=== PATIENT | male | born 1945 | race Caucasian/White ===

== ENCOUNTER 2019-11-30 08:44 | Emergency (ER) | payer MEDICARE, BC, SELFPAY ==
[2019-11-30 08:58] VITALS: BP 136/74; PULSE 63; RESP 18; TEMP 36.8; O2SAT 97
--- NOTE | 2019-11-30 09:16 | ED.EYEPROB ---
HPI - Eye Problem General Chief complaint: Eye Problems Stated complaint: right eye Time Seen by Provider: 11/30/19 09:05 Source: patient and RN notes reviewed Mode of arrival: ambulatory Limitations: no limitations History of Present Illness HPI Narrative: Patient presents today complaining of a possible scratch to his right cornea. He was working on his boat yesterday with a paperboard box maker in his right hand. He believes that somehow the corner of this paperboard box maker poked him in the eye. Reports blurry vision, photophobia, watery eyes. Denies drainage. Currently rates his pain 5/10. He has been using Visine without relief. Related Data Home Medications Medication Instructions Recorded Confirmed levothyroxine 75 mcg PO DAILY 11/30/19 11/30/19 rosuvastatin 10 mg PO DAILY 11/30/19 11/30/19 Allergies Allergy/AdvReac Type Severity Reaction Status Date / Time No Known Allergies Allergy Verified 11/30/19 09:13 Review of Systems Review of Systems: Narrative: CONSTITUTIONAL: Denies body aches, fever, chills, or sweats. EYES: +Blurry vision, red eye pain, photophobia ENT: Denies rhinorrhea, congestion, sore throat, or otalgia. CARDIOVASCULAR: Denies chest pain, palpitations, or edema. RESPIRATORY: Denies cough or dyspnea. GASTROINTESTINAL: Denies abdominal pain, nausea, vomiting, or diarrhea. GENITOURINARY: Denies dysuria or hematuria. SKIN: Denies rash, itching, or wounds. MUSCULOSKELETAL: Denies back pain, joint pain, or myalgia. NEUROLOGIC: Denies headache, numbness, tingling, or weakness. PSYCH: Denies depression or anxiety. [facility] Past Medical History Medical History (Updated 11/30/19 @ 09:31 by Leana Pineda, TAXI TRUCK DRIVER, ) Hypercholesterolemia Hypothyroidism Comments At time of signature, I have reviewed and agree with nursing past medical, surgical, social and family history unless otherwise noted. Please see nursing chart for further information. There is no relevant family history pertinent to the presenting complaint Exam Narrative: Exam Narrative: GENERAL: Well-appearing, well-nourished, and in no acute distress. HEAD: Normocephalic, atraumatic. EYES: EOMI. PERRL. Conjunctivae normal. Mild redness to right eye. Obvious corneal abrasion with fluorescein uptake to the 10 o'clock position of the right iris.Lids and lashes normal bilaterally ENT: Mucous membranes pink and moist. NECK: Normal AROM. CHEST: No respiratory distress. EXTREMITIES: Normal range of motion. No edema. SKIN: Warm, dry, no rash. Capillary refill normal. Normal skin turgor. NEURO: No focal deficits. Alert and oriented x3. Gait steady. PSYCH: Normal affect. No signs of depression or anxiety. Course Vital Signs Vital signs: Vital Signs Temperature 98.2 F 11/30/19 08:58 Pulse Rate 63 11/30/19 08:58 Respiratory Rate 18 11/30/19 08:58 Blood Pressure 136/74 11/30/19 08:58 Pulse Oximetry 97 11/30/19 08:58 Temperature 98.2 F 11/30/19 08:58 Pulse Rate 63 11/30/19 08:58 Respiratory Rate 18 11/30/19 08:58 Blood Pressure 136/74 11/30/19 08:58 Pulse Oximetry 97 11/30/19 08:58 Reviewed. Pt has been instructed to follow up with his PCP regarding his elevated blood pressure today. Procedures Other Procedure Procedure 1: Other Procedure: Right eye was anesthetized with 1 drop of tetracaine and anesthesia was achieved. The eye was flushed with eye wash. Lid was inverted and examined. Moistened Qtip was used to sweep underneath the upper eyelid with 0 foreign bodies resulting. Cornea was dyed with fluorescein and 1 abrasions or ulcerations were noted. Pt tolerated procedure well. MDM - Eye Problem Differential Diagnosis Differential diagnosis: Likely corneal abrasion, conjunctivitis and subconjunctival hemorrhage Critical Care Time Critical Care Time Critical Care Time: No Discharge Plan Discharge Clinical Impression: Corneal abrasion Qualifiers: Encounter type: initial encounter
== END 2019-11-30 09:25 | disposition home or self-care (01) ==
PROVIDERS: Emergency Provider Nurse Practitioner; PCP Internal Medicine
DX: S05.01XA Injury of conjunctiva and corneal abrasion without foreign body, right eye, initial encounter (principal); W22.8XXA Striking against or struck by other objects, initial encounter; E78.00 Pure hypercholesterolemia, unspecified; E03.9 Hypothyroidism, unspecified
CPT/HCPCS: 99203; A9270; G0463

== ENCOUNTER 2025-05-02 15:31 | Emergency (ER) | payer MEDICARE, BC, SELFPAY ==
--- NOTE | ~2025-05-02 | XR_ITS ---
XR chest 2V 05/02/2025 16:25 Indication: Prior open heart surgery. Status post thoracentesis. Procedure: 2 view chest Comparison: No prior studies for comparison. Findings: Status post median sternotomy for CABG. There is an atrial closure device. Cardiomegaly. Small pleural effusions. Bibasilar airspace disease. Impression: 1: Bibasilar airspace disease may represent atelectasis and/or pneumonia. 2: Small pleural effusions. Reviewed, dictated and finalized at location O. RISK MANAGEMENT CONSULTANT Impression: 1: Bibasilar airspace disease may represent atelectasis and/or pneumonia. 2: Small pleural effusions.
--- OUTSIDE RECORDS SUMMARY | 2025-05-02 15:37 | XMS_ITS | Encounter Summary ---
Author Organization [facility] Address [address] [place] [address] Phone Care Team Providers Care Crt Name Role Phone Josh Baker MD Primary Care Provider [phone] Janet Betancourt RN Unavailable [phone] Viji Salazar RN Unavailable Subhash Mcgill MD Primary Care Provider [phone] Demetris Cole MD Primary Care Provider [phone] Kristyn Chavez RN Unavailable [phone] Luis Antonio Taylor MD Unavailable [phone] Salo Junior MD Unavailable [phone] Miscellaneous, Not In File Unavailable Unava ilable Encounter Details Date Type Department Care Team (Late st Contact Info) Description 07/17/2017 Orders Only [facility] Provider, MD [facility] [place] [address] Social History Tobacco Use Types Packs/Day Years Used Date Smoking Tobacco: Never Alcohol Use Standard Drinks/Week Comments Yes 0 (1 standard drink = 0.6 oz pur e alcohol) Sex and Gender Information Value Date Recorded Sex Assigned at Not on file Legal Sex Male 9:23 AM ROLL RECLAIMER Gender Identity Not on file Sexual Orientation Not on file documented as of this encounter Plan of Treatment Not on file documented as of this encounter Procedures Procedure Name Priority Date/Time Associated Diagnosis Comments DISCHARGE LABORATORY CUMULATIVE REPORT 07/17/2017 12:00 AM ROLL RECLAIMER documented in this encounter Results * DISCHARGE LABORATORY CUMULATIVE REPORT (07/17/2017 12:00 AM ROLL RECLAIMER) Narrative 07/17/2017 12:00 AM ROLL RECLAIMER Ordered by an unspecified provider. us Historical Provider LAB BLOOD ORDERABLES Tamiko l Result documented in this encounter Visit Diagnoses Not on filedocumented in this encounter Additional Health Concerns Infection Onset Date Last Indicated Resolved Time COVID: Suspected 06/28/2024 06/28/2024 06/28/2024 4:42 PM ROLL RECLAIMER COVID: Suspected 03/31/2025 03/31/2025 03/31/2025 1:39 AM ROLL RECLAIMER documented as of this encounter Care Teams Crt Relationship Specialty Start Date End Date Josh Baker MD PCP - General 08/07/16 09/15/23 Subhash Mcgill MD [address] [place] [address] [address] [place] [address] PCP - General Family Medicine 09/16/23 05/15/24 Demetris Cole MD [address] [place] [address] PCP - General Family Medicine 05/16/24 Janet Betancourt RN [address] [place] [address] [place] [address] Terrazzo Layer Helper 05/19/23 05/26/23 Viji Salazar RN [address] [place] [address] [address] [place] [address] Terrazzo Layer Helper 05/27/23 06/16/23 Kristyn Chavez RN [address] [place] [address] [address] [place] [address] Terrazzo Layer Helper 01/15/25 04/30/25 [place] [address] [facility] [address] [facility] [address] [place] [address] Surgeon Cardiothoracic Surgery 01/23/25 Salo Junior MD 2 [facility] [address] [place] [address] Consulting Physician Cardiology 01/23/25 Miscellaneous, Not In File 01/23/25 documented as of this encounter
--- OUTSIDE RECORDS SUMMARY | 2025-05-02 15:37 | XMS_ITS | Encounter Summary ---
Author Organization [facility] Address [address] [place] [address] Care Team Providers Care Panel Maker Name Role Phone Demetris Cole MD Primary Care Provider [phone] Kristyn Chavez RN Unavailable [phone] Luis Antonio Taylor MD Unavailable [phone] Salo Junior MD Unavailable [phone] Miscellaneous, Not In File Unavailable Unava ilable Encounter Details Date Type Department Care Team (Late st Contact Info) Description 04/12/2025 Results Follow-Up [facility] of [address] [address] Blank Lerma NP [address] [facility] [place] [address] XR Chest PA Lateral 2 Views Social History Tobacco Use Types Packs/Day Years Used Date Smoking Tobacco: Never Smokeless Tobacco: Never Alcohol Use Standard Drinks/Week Comments Not Currently 0 (1 standard drink = 0.6 oz pur e alcohol) Social Connection and Isolation Panel Answer Date Recorded In a typical week, how many times do you talk on the phone with family, friends, or neighbors? More than three times a week 05/19/2023 How often do you get togethe r with friends or relatives? Three times a week 05/19/2023 How often do you attend [facility] or shinto services? More than 4 times per year 05/19/2023 Do you belong to any clubs o r organizations such as mosque groups, unions, fraternal or athletic groups, or school groups? Yes 05/19/2023 How often do you attend meet ings of the clubs or organizations you belong to? More than 4 times per year 05/19/2023 Are you , , di vorced, , never , or living with a partner? 05/19/2023 Overall Financial Resource Strain (CARDIA) Answe r Date Recorded How hard is it for you to pa y for the very basics like food, housing, medical care, and heating? Not hard at all 05/19/2023 PHQ-2 Answer Date Recorded PHQ-2 Total Score (If total score is 3 or more points, staff should administer the PHQ-9) 0 04/10/2025 PRAPARE - Transportation Answer Date Re corded In the past 12 months, has l ack of transportation kept you from medical appointments or from getting medications? No 05/10 In the past 12 months, has l ack of transportation kept you from meetings, work, or from getting things needed for daily living? No 05/19/2023 Housing Stability Vital Sign Answer Colin e Recorded In the last 12 months, was t here a time when you were not able to pay the mortgage or rent on time? No 05/19/2023 In the last 12 months, how many places have you lived? 1 05/19/2023 In the last 12 months, was t here a time when you did not have a steady place to sleep or slept in a correction (including now)? No 05/19/2023 Social Connection and Isolation Panel Answer Date Recorded In a typical week, how many times do you talk on the phone with family, friends, or neighbors? Three times a week 04/12/2025 How often do you get togethe r with friends or relatives? Three times a week 04/12/2025 How often do you attend chur ch or shinto services? More than 4 times per year 04/12/2025 Do you belong to any clubs o r organizations such as mosque groups, unions, fraternal or athletic groups, or school groups? Yes 04/12/2025 How often do you attend meet ings of the clubs or organizations you belong to? More than 4 times per year 04/12/2025 Are you , , di vorced, , never , or living with a partner? 04/12/2025 AUDIT-C Answer Date Recorded Q1: How often do you have a drink containing alcohol? Never 04/12/2025 Q2: How many drinks containi ng alcohol do you have on a typical day when you are drinking? Patient does not drink Q3: How often do you have si x or more drinks on one occasion? Never 04/12/2025 Overall Financial Resource Strain (CARDIA) Answe r Date Recorded How hard is it for you to pa y for the very basics like food, housing, medical care, and heating? Not very hard 04/12/2025 Hunger Vital Sign Answer Date Recorded Within the past 12 months, y ou worried that your food would run out before you got the money to buy more. Never true 04/12/20 25 Within the past 12 months, t he food you bought just didn't last and you didn't have money to get more. Never true 04/12/2025 PRAPARE - Transportation Answer Date Re corded In the past 12 months, has l ack of transportation kept you from medical appointments or from getting medications? No 08/2024 In the past 12 months, has l ack of transportation kept you from meetings, work, or from getting things needed for daily living? No 04/12/2025 Housing Stability Vital Sign Answer Colin e Recorded In the last 12 months, was t here a time when you were not able to pay the mortgage or rent on time? No 04/12/2025 In the past 12 months, how m any times have you moved where you were living? 0 04/12/2025 At any time in the past 12 m [facility], were you homeless or living in a correction (including now)? No 04/12/2025 [facility] Utilities Answer Date Recorded In the past 12 months has th e electric, gas, oil, or water company threatened to shut off services in your home? No 04/12/2025 Personal Safety Answer Date Recorded Have you ever been in or are you currently in a harmful physical or emotional relationship or is someone making you feel afraid or unsafe? Denies 04/11/2025 Education Answer Date Recorded What is the highest level of school you have completed or the highest degree you have received? GED or equivalent 09/2023 Sex and Gender Information Value Date Recorded Sex Assigned at Not on file Legal Sex Male 9:23 AM BRIDGE PAINTER HELPER Gender Identity Not on file Sexual Orientation Not on file documented as of this encounter Miscellaneous Notes * Telephone Encounter - Jaimie Wilcox - 04/25/2025 11:58 AM CST Medical Question/Miscellaneous Caller???s Concern: called back and firearms assembly supervisor relayed message. Pt had no questions Does message need to be routed? No GE PAINTER HELPER * Result Encounter Note - Cinthia Antony MA - 04/24/2025 2:55 PM CST Lvm for pt to rc to office. GE PAINTER HELPER documented in this encounter Plan of Treatment Not on file documented as of this encounter Visit Diagnoses Not on filedocumented in this encounter Care Teams Panel Maker Relationship Specialty Start Date End Date Demetris Cole MD [address] [place] [address] PCP - General Family Medicine 05/16/24 Kristyn Chavez RN [address] [place] [address] [address] [place] [address] Woodenware Assembler 01/15/25 04/30/25 [place] [address] [address] [facility] [address] [place] [address] Surgeon Cardiothoracic Surgery 01/23/25 Salo Junior MD [address] [place] [address] [address] [facility] [place] [address] Consulting Physician Cardiology 01/23/25 Miscellaneous, Not In File 01/23/25 documented as of this encounter
--- OUTSIDE RECORDS SUMMARY | 2025-05-02 15:37 | XMS_ITS | Encounter Summary ---
Author Organization [facility] Address [address] [place] [address] Care Team Providers Care Cutter Barrel Drum Name Role Phone Demetris Cole MD Primary Care Provider [phone] Kristyn Chavez RN Unavailable [phone] Luis Antonio Taylor MD Unavailable [phone] Salo Junior MD Unavailable [phone] Miscellaneous, Not In File Unavailable Unava ilable Reason for Visit * Reason Onset Date Comments Medical Question/Miscellaneous 04/12/2025 Encounter Details Date Type Department Care Team (Late st Contact Info) Description 04/12/2025 Telephone [facility] [address] [address] Demetris Cole MD [address] [place] [address] Medical Question/Miscellaneous Social History Tobacco Use Types Packs/Day Years [...] week 05/19/2023 How often do you attend chur ch or mu-ism services? More than 4 times per year 05/19/2023 Do you belong to any clubs o r organizations such as anglican groups, unions, fraternal or athletic groups, or [...] place to sleep or slept in a penitentiary (including now)? No 05/19/2023 Social Connection and Isolation Panel Answer Date Recorded In a typical week, how many times do you talk on the phone with family, friends, or neighbors? Three times a week 04/12/2025 How often do you get togethe r with friends or relatives? Three times a week 04/12/2025 How often do you attend chur ch or mu-ism services? More than 4 times per year 04/12/2025 Do you belong to any clubs o r organizations such as anglican groups, unions, fraternal or athletic groups, or [...] any time in the past 12 m [facility], were you homeless or living in a penitentiary (including now)? No 04/12/2025 [facility] Utilities Answer Date Recorded In the past [...] on file Legal Sex Male 9:23 AM ALTERATIONS SUPERVISOR Gender Identity Not on file Sexual Orientation Not on file documented as of this encounter Miscellaneous Notes * Telephone Encounter - Cathy Watts MA - 04/17/2025 8:49 AM CST Please see telephone encounter dated 04/16 RATIONS SUPERVISOR * Telephone Encounter - Cathy Watts MA - 04/13/2025 1:08 PM CST Pt still admitted at , will reach out to pt Wednesday morning and make him aware. RATIONS SUPERVISOR * Telephone Encounter - Cathy Watts MA - 04/12/2025 5:00 PM CST Would you recommend abx prior to dental cleaning? RATIONS SUPERVISOR * Telephone Encounter - Parul Burnette MA - 04/12/2025 3:52 PM CST Medical Question/Miscellaneous Caller???s Concern: Patient is having dental cleaning done on 04/16 and he needs to know if he should have an antibiotic for it since he has had heart problems. The dentist asked him to reach out and find out. Please contact Gabriel back and let him know. Does message need to be routed? Yes-Action Needed RATIONS SUPERVISOR documented in this encounter Plan of Treatment Not on file documented as of this encounter Visit Diagnoses Not on filedocumented in this encounter Care Teams Cutter Barrel Drum Relationship Specialty Start Date End Date [place] [address] PCP - General Family Medicine 05/16/24 Kristyn Chavez, RN [address] [place] [address] [address] [place] [address] Grinder Set Up Operator Thread 01/15/25 04/30/25 [place] [address] [facility] [address] [place] [address] Surgeon Cardiothoracic Surgery 01/23/25 Salo Junior MD 2 [facility] [address] [place] [address] Consulting Physician Cardiology 01/23/25 Miscellaneous, Not In File 01/23/25 documented as of this encounter
--- OUTSIDE RECORDS SUMMARY | 2025-05-02 15:37 | XMS_ITS | Encounter Summary ---
Author Organization [facility] Address [address] [place] [address] Phone Care Team Providers Care Childcare Provider Name Role Phone Josh Baker MD Primary Care Provider [phone] Janet Betancourt RN Unavailable [phone] Viji Salazar RN Unavailable Subhash Mcgill MD Primary Care Provider [phone] Demetris Cole MD Primary Care Provider [phone] Kristyn Chavez RN Unavailable [phone] Luis Antonio Taylor MD Unavailable [phone] Salo Junior MD Unavailable [phone] Miscellaneous, Not In File Unavailable Unava ilable Encounter Details Date Type Department Care Team (Late st Contact Info) Description 07/15/2017 Orders Only [facility] Provider, MD [facility] [place] [address] Social History Tobacco Use Types Packs/Day Years Used Date Smoking Tobacco: Never Alcohol Use Standard Drinks/Week Comments Yes 0 (1 standard drink = 0.6 oz pur e alcohol) Sex and Gender Information Value Date Recorded Sex Assigned at Not on file Legal Sex Male 9:23 AM CLINICAL ASSISTANT Gender Identity Not on file Sexual Orientation Not on file documented as of this encounter Plan of Treatment Not on file documented as of this encounter Procedures Procedure Name Priority Date/Time Associated Diagnosis Comments DISCHARGE LABORATORY CUMULATIVE REPORT 07/15/2017 12:00 AM CLINICAL ASSISTANT documented in this encounter Results * DISCHARGE LABORATORY CUMULATIVE REPORT (07/15/2017 12:00 AM CLINICAL ASSISTANT) Narrative 07/15/2017 12:00 AM CLINICAL ASSISTANT Ordered by an unspecified provider. us Historical Provider LAB BLOOD ORDERABLES Tamiko l Result documented in this encounter Visit Diagnoses Not on filedocumented in this encounter Additional Health Concerns Infection Onset Date Last Indicated Resolved Time COVID: Suspected 06/28/2024 06/28/2024 06/28/2024 4:42 PM CLINICAL ASSISTANT COVID: Suspected 03/31/2025 03/31/2025 03/31/2025 1:39 AM CLINICAL ASSISTANT documented as of this encounter Care Teams Childcare Provider Relationship Specialty Start Date End Date Josh Baker MD PCP - General 08/07/16 09/15/23 Subhash Mcgill MD [address] [place] [address] [address] [place] [address] PCP - General Family Medicine 09/16/23 05/15/24 Demetris Cole MD [address] [place] [address] PCP - General Family Medicine 05/16/24 Janet Betancourt RN [address] [place] [address] [place] [address] Photoengraving Etcher Apprentice 05/19/23 05/26/23 Viji Salazar RN [address] [place] [address] [address] [place] [address] Photoengraving Etcher Apprentice 05/27/23 06/16/23 Kristyn Chavez RN [address] [place] [address] [address] [place] [address] Photoengraving Etcher Apprentice 01/15/25 04/30/25 [place] [address] [facility] [address] 1 [facility] [address] [place] [address] Surgeon Cardiothoracic Surgery 01/23/25 Salo Junior MD [address] [facility] [address] [place] [address] Consulting Physician Cardiology 01/23/25 Miscellaneous, Not In File 01/23/25 documented as of this encounter
--- OUTSIDE RECORDS SUMMARY | 2025-05-02 15:37 | XMS_ITS | Encounter Summary ---
Author Organization [facility] Healthcare Address [address] [place] [address] Care Team Providers Care Air Pollution Control Engineer Name Role Phone Demetris Cole MD Primary Care Provider [phone] Kristyn Chavez RN Unavailable [phone] Luis Antonio Taylor MD Unavailable [phone] Salo Junior MD Unavailable [phone] Miscellaneous, Not In File Unavailable Unava ilable Reason for Visit * Reason Onset Date Comments Appointment 04/13/2025 Encounter Details Date Type Department Care Team (Late st Contact Info) Description 04/13/2025 Telephone [facility] Gastroenterology at [address] [address] Mariel Buck, BENJAMIN [address] [place] [id number] Appointment Social History Tobacco Use Types Packs/Day Years [...] week 05/19/2023 How often do you attend [facility] or pentecostal services? More than 4 times per year 05/19/2023 Do you belong to any clubs o r organizations such as sabianism groups, unions, fraternal or athletic groups, or [...] place to sleep or slept in a custodial (including now)? No 05/19/2023 Social Connection and Isolation Panel Answer Date Recorded In a typical week, how many times do you talk on the phone with family, friends, or neighbors? Three times a week 04/12/2025 How often do you get togethe r with friends or relatives? Three times a week 04/12/2025 How often do you attend chur ch or pentecostal services? More than 4 times per year 04/12/2025 Do you belong to any clubs o r organizations such as sabianism groups, unions, fraternal or athletic groups, or school groups? Yes 04/12/2025 How often do you attend meet ings of the clubs or organizations you belong to? More than 4 times per year 04/12/2025 Are you , , di vorced, , never , or living with a partner? 04/12/2025 AUDIT-C Answer Date Recorded Q1: How often do you have a drink containing alcohol? Never 04/19/2025 Q2: How many drinks containi ng alcohol do you have on a typical day when you are drinking? Patient does not drink Q3: How often do you have si x or more drinks on one occasion? Never 04/19/2025 Overall Financial Resource Strain (CARDIA) Answe r [...] any time in the past 12 m [facility], were you homeless or living in a custodial (including now)? No 04/12/2025 [facility] Utilities Answer Date Recorded In the past [...] on file Legal Sex Male 9:23 AM WOOD GRINDER Gender Identity Not on file Sexual Orientation Not on file documented as of this encounter Miscellaneous Notes * Telephone Encounter - Ivonne Godfrey MA - 05/02/2025 8:29 AM CST Attempt to contact Pt to schedule a Hosp F/U Appt. Attempt unsuccessful. LVM asking Pt to contact us back to schedule. GRINDER * Telephone Encounter - Ivonne Godfrey MA - 04/16/2025 1:30 PM CST No Appt available with any of the providers until 08/2025. Please advise. Thank you. GRINDER * Telephone Encounter - Crystal Whyte MA - 04/13/2025 7:35 AM CST Currently inpatient. GRINDER * Telephone Encounter - Crystal Whyte MA - 04/13/2025 7:35 AM CST ----- Message from BENJAMIN Stern sent at 04/12/2025 11:19 AM WOOD GRINDER ----- Regarding: Follow Up Please schedule for follow up visit with SHERRY in 6 weeks. Thanks! Dx: Dysphagia, possible esophagitis on imaging GRINDER documented in this encounter Plan of Treatment Not on file documented as of this encounter Visit Diagnoses Not on filedocumented in this encounter Care Teams Air Pollution Control Engineer Relationship Specialty Start Date End Date [place] [address] PCP - General Family Medicine 05/16/24 Kristyn Chavez, RN [address] [place] [address] [address] [place] [address] Audio Visual Manager 01/15/25 04/30/25 [place] [address] [facility] [place] [address] [place] [address] Surgeon Cardiothoracic Surgery 01/23/25 Salo Junior MD [address] [facility] [address] [place] [address] Consulting Physician Cardiology 01/23/25 Miscellaneous, Not In File 01/23/25 documented as of this encounter
--- OUTSIDE RECORDS SUMMARY | 2025-05-02 15:37 | XMS_ITS | Encounter Summary ---
Author Organization [facility] Healthcare Address [address] [place] [address] Care Team Providers Care Expansion Envelope Maker Hand Name Role Phone Demetris Cole MD Primary Care Provider [phone] Kristyn Chavez RN Unavailable [phone] Luis Antonio Taylor MD Unavailable [phone] Salo Junior MD Unavailable [phone] Miscellaneous, Not In File Unavailable Unava ilable Reason for Visit * Reason Onset Date Comments Test Results 04/11/2025 Encounter Details Date Type Department Care Team (Late st Contact Info) Description 04/11/2025 Telephone [facility] [address] [place] [address] Demetris Cole MD [address] [place] [address] [place] [address] Test Results Social History Tobacco Use Types Packs/Day Years [...] week 05/19/2023 How often do you attend [facility] or restorationist services? More than 4 times per year 05/19/2023 Do you belong to any clubs o r organizations such as denominational groups, unions, fraternal or athletic groups, or [...] place to sleep or slept in a [facility]p (including now)? No 05/19/2023 Social Connection and Isolation Panel Answer Date Recorded In a typical week, how many times do you talk on the phone with family, friends, or neighbors? Three times a week 04/12/2025 How often do you get togethe r with friends or relatives? Three times a week 04/12/2025 How often do you attend chur ch or restorationist services? More than 4 times per year 04/12/2025 Do you belong to any clubs o r organizations such as denominational groups, unions, fraternal or athletic groups, or [...] any time in the past 12 m [facility], were you homeless or living in a mcfp (including now)? 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 COMMUNICATIONS MANAGER * Telephone Encounter - Benita Downey - 04/11/2025 12:18 PM CST Test Result Request Type of test: X-ray Chest Date of test: 04/10/25 Where was the test performed at? [facility] Did provider dictate result yet? No Additional Questions/Comments: patient and spouse would like a call back GALE to go over the results. was informed she would hear back last night or today. would like to receive a call ASAPand to discuss next steps. She is not sure if patient will need procedure Thoracentesis done. expressed for a urgent call back. Does message need to be routed? Yes-Action Needed COMMUNICATIONS MANAGER documented in this encounter Plan of Treatment Not on file documented as of this encounter Visit Diagnoses Not on filedocumented in this encounter Care Teams Expansion Envelope Maker Hand Relationship Specialty Start Date End Date [place] [address] PCP - General Family Medicine 05/16/24 Kristyn Chavez, RN [address] [place] [address] [address] [place] [address] Assessment Coordinator 01/15/25 04/30/25 [place] [address] [facility] [address] [place] [address] Surgeon Cardiothoracic Surgery 01/23/25 Salo Junior MD [address] [place] [address] [address] [place] [address] Consulting Physician Cardiology 01/23/25 Miscellaneous, Not In File 01/23/25 documented as of this encounter
[2025-05-02 15:44] VITALS: BP 139/79; PULSE 60; RESP 20; TEMP 36.5; O2SAT 99
--- NOTE | 2025-05-02 15:56 | ED.GENADULT ---
HPI - General Adult General Chief complaint: Urogenital-Male Stated complaint: poss uti Time Seen by Provider: 05/02/25 15:57 Source: patient, family, RN notes reviewed and old records reviewed Mode of arrival: ambulatory Limitations: no limitations History of Present Illness HPI narrative: 79 year old male accompanied by with complaints of some shortness of breth with some urinary frequency lately and has been inct.. reports that patient has had some mental delays and some confusion so she thought maybe he had ITI with his urinary frequency though patient is on diuretic. states that patient had open hear surgery in January and has had 3 thoracentesis since his surgery. Patient reports that he has felt more short of breath for past week and a half. reports that patient has not had any fevers, has voiced some chill denies any body aches or headache pain. reports that patient sleeps alot. MD complaint: shortness of breath some cough, concern for UTI,has had some confusion. Onset (ago): week(s) (1.5 weeks of being more short of breath, few days of some confusion and increased urination and inct.) Treatments prior to arrival: other (taking his medications as prescribed does have inhaler has not used.) Related Data Home Medications ?Medication ?Instructions ?Recorded ?Confirmed ?Last Taken ?Type levothyroxine 75 mcg tablet 75 mcg PO DAILY 11/30/19 11/30/19 Unknown History amiodarone 200 mg tablet mg 05/02/25 Unknown History apixaban 5 mg tablet (Eliquis) mg 05/02/25 Unknown History clopidogrel 75 mg tablet mg 05/02/25 Unknown History colchicine 0.6 mg capsule mg 05/02/25 Unknown History dronabinol 2.5 mg capsule mg 05/02/25 Unknown History famotidine 40 mg tablet mg 05/02/25 Unknown History furosemide 20 mg tablet mg 05/02/25 Unknown History metoprolol tartrate 25 mg tablet mg 05/02/25 Unknown History mirtazapine 15 mg tablet mg 05/02/25 Unknown History rosuvastatin 20 mg tablet mg 05/02/25 Unknown History Allergies Allergy/AdvReac Type Severity Reaction Status Date / Time No Known Allergies Allergy Verified 05/02/25 15:44 Review of Systems Review of Systems: CONSTITUTIONAL: Denies fever, occasional chills, no sweats. CARDIOVASCULAR: Denies chest pain, palpitations, or edema. RESPIRATORY: reports mild dry cough reports that he has had increased dyspnea.no peripheral edema noted GASTROINTESTINAL: Denies abdominal pain, nausea, vomiting, or diarrhea. GENITOURINARY: Reports no dysuria, +frequency, urgency. has been incontinent. Denies flank pain or hematuria. SKIN: Denies rash or itching. MUSCULOSKELETAL: Denies back pain or myalgia. 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 CAD (coronary artery disease) Hypothyroidism Hypercholesterolemia Surgical History Surgical History (Updated 05/03/25 @ 13:06 by Patricia Jensen APRN) History of bilateral carpal tunnel release History of thoracentesis X3 since open heart surgery History of open heart surgery January of 2025 Social History Social History (Updated 05/03/25 @ 13:06 by Patricia Jensen APRN) Smoking status: Never smoker Alcohol intake: current Alcohol use details: rare social Substance use type: does not use Living arrangements: with family Occupation/Education: retired Gender identity (if verbalized by the patient): Male Comments At time of signature, agree with nursing past medical, surgical, social and family history. There is no relevant family history pertinent to the presenting complaint Exam Narrative: GENERAL: chronic ill appearing, fair-nourished, and in no acute distress. HEAD: Normocephalic, atraumatic. NECK: Supple.no lymphadenopathy or JVD noted CHEST: decreased in bases with some crackles to auscultation. No respiratory distress.dry cough noted SAO2 99% on room air HEART: Regular rate and rhythm. No murmur heard. Normal peripheral pulses. ABDOMEN: Soft, nontender, nondistended, normal active bowel sounds. No CVA tenderness EXTREMITIES: Normal range of motion. No edema. SKIN: Warm, dry, no rash. NEURO: No focal deficits. Alert and oriented x3. reports slight confusion noted Course Course Level of Care: Express Care Visit Vital Signs Vital signs: Vital Signs Temperature 36.5 C 05/02/25 15:44 Pulse Rate 60 05/02/25 15:44 Respiratory Rate 20 05/02/25 15:44 Blood Pressure 139/79 05/02/25 15:44 Pulse Oximetry 99 05/02/25 15:44 Temperature 36.5 C 05/02/25 15:44 Pulse Rate 60 05/02/25 15:44 Respiratory Rate 20 05/02/25 15:44 Blood Pressure 139/79 05/02/25 15:44 Pulse Oximetry 99 05/02/25 15:44 reviewed [facility] Narrative Medical decision making narrative: 79 year old male accompanied by with complaints of urinary frequency with some episodes of incontinency for past few day with stating that patient was showing some signs of confusion at times, she was concerned for UTI. Urine dip negative for any signs of infection no leukocytes noted or any blood, Patient admits to increased dyspnea for past 1.5 weeks with some dry cough, states that patient has not had any fever though he has stated some occasional chills. Patient and state that patient had open heart surgery in January and has had 3 thoracentesis since his surgery has had some weakness since surgery and states patient sleeps a lot. Patient tested for COVID and Flu with testing negative, Chest x-ray shows some small pleural effusions and some bibasilar airspace disease that could represent atelectasis and or pneumonia.. Patient and were encouraged to go to ED this evening for further evaluation but state do not want to go tonight if symptoms continue will go tomorrow. Patient prescribed Augmentin and told to use inhaler to expand lung field and to monitor for any fevers and go to ED if any changes in condition or any increased symptoms. Patient and agree to treatment plan. Anticipatory guidance and reviewed reasons to seek care in ED or call 911 for further evaluation and treatment with understanding voiced. Differential Diagnosis Differential Diagnosis: Differential diagnostic considerations for shortness of breath?include respiratory failure, pulmonary embolus, ACS, COPD, CHF, pneumonia, pneumothorax, asthma, metabolic disorder, anxiety. Differential diagnostic considerations for male genitourinary issues include urinary tract infection, priapism, epididymitis, prostatitis, acute retention of urine, inguinal hernia, STI exposure, testicular torsion, Gladys?s gangrene., diuretics and episodes of urinary incontinency Lab Data [facility] Lab Attestation statement: I personally reviewed the patient's lab results. Lab results narrative: urine dip reviewed [facility] is normal with no blood or any leukocytes, set for culture COVID antigen negative. Influenza A&B negative Labs: Lab Results 05/02/25 05/02/25 Range/Units 15:49 17:05 POC Urine Color Yellow POC Urine Clarity Clear POC Urine pH 5.5 POC Ur Specif [place] 1.020 POC Urine Protein Negative (Negative) POC Ur Glucose (UA) Negative (Negative) POC Urine Ketones Negative (Negative) POC Urine Blood Negative (Negative) POC Urine Nitrite Negative (Negative) POC Urine Bilirubin Negative (Negative) POC Urine Urobilinogen 0.2 POC U Leukocyte Esteras Negative (Negative) POC Influenza A Ag Negative (Negative) POC Influenza B Ag Negative (Negative) POC SARS CoV-2 Ag Negative (Negative) reviewed Imaging Data Attestation: I personally reviewed and interpreted this imaging study as follows: My impression: bibasalar airspace diseas may represent atelectasis and /or pneumonia small pleural effusion. Cardiomegaly Radiologist's impression: ITS Impressions Chest X-Ray 05/02/25 16:30 Impression: 1: Bibasilar airspace disease may represent atelectasis and/or pneumonia. 2: Small pleural effusions. [facility] [place] [place] [address] XRay Report Signed Patient: Adalberto Verde : 1945 MR#: [id number] Age: 79 Acct:[id number] Loc: EXPBE ADM Date: 05/02/[address]: Ordering Physician: Patricia Jensen APRN Date of Service: 05/02/25 Procedure(s): XR chest 2V Accession Number(s): [id number] cc: Kelsey, Demetris BELTRÁN; Patricia Jensen APRN~ XR chest 2V 05/02/2025 16:25 Indication: Prior open heart surgery. Status post thoracentesis. Procedure: 2 view chest Comparison: No prior studies for comparison. Findings: Status post median sternotomy for CABG. There is an atrial closure device. Cardiomegaly. Small pleural effusions. Bibasilar airspace disease. Impression: 1: Bibasilar airspace disease may represent atelectasis and/or pneumonia. 2: Small pleural effusions. Reviewed, dictated and finalized at location O. STRIAL GAS SERVICER SUPERVISOR Please be advised this is a medical document. It is intended for [id number] communication. It is written in medical language and may contain unfamiliar abbreviations or verbiage. Medical documents are intended to carry relevant information, facts as evident, and the clinical opinion of the practitioner at the time of the encounter. This report may have been done utilizing a voice recognition system. Attempts have been made to correct errors. However, there may be uncorrected grammatical, spelling, and recognition errors present. The file time of this note does not necessarily represent the time of service. Dictated By: Sanya Gracia MD 05/02/25 1630 Signed By: <Electronically signed by Sanya Gracia MD in OV> Critical Care Time Critical Care Time Critical Care Time: No Discharge Plan Discharge Clinical Impression: Pleural effusion Pneumonia Qualifiers: Pneumonia type: due to unspecified organism Laterality: bilateral Lung location: lower lobe of lung Qualified Code(s): J18.9 - Pneumonia, unspecified organism Patient Disposition: Home Condition: Stable Instructions: Antibiotic Form, Pneumonitis (ED) Additional Instructions: Increase fluids especially juices and water [id number] cough and cold medicine of your choice for your symptoms Delsym or Robitussin Tylenol for any fever or pain Zyrtec or Claritin or Tesha daily with Coricidin brand decongestant heat to the face 20-30 minutes 4-6 times a day for pain Salt water gargles, throat lozenges or throat sprays as desired Antibiotic as directed--finished the medication use your home inhaler for dyspnea and lung expansion Monitor temperature every 6 hours If any fever or any change in condition go to [facility] ED for further evaluation since Cardiac surgeon is there or if acute situation call 911 Patient Language: Macedonian Prescriptions: New amoxicillin-pot clavulanate 875-125 mg tablet 1 tablet PO Q12H Qty: 20 0RF No Action levothyroxine 75 mcg Tablet 75 mcg PO DAILY amiodarone 200 mg tablet famotidine 40 mg tablet clopidogrel 75 mg tablet dronabinol 2.5 mg capsule furosemide 20 mg tablet mirtazapine 15 mg tablet rosuvastatin 20 mg tablet metoprolol tartrate 25 mg tablet Eliquis 5 mg tablet colchicine 0.6 mg capsule Follow-up/Referrals: Kelsey,MD Demetris [Primary Care Provider, Unknown] Stand Alone Forms: Work/School Release IP Time of Disposition: 17:14 Quality Blade Coma Scale Eyes: Open Verbal: Oriented and Alert Motor: Follows Commands Blade Coma Total Score: 15
[2025-05-02 16:18] LABS: EDUAAPPEAR Clear; EDUABILI Negative (Negative); EDUABLOOD Negative (Negative); EDUACOLOR1 Yellow; EDUAGLUCOSE Negative (Negative); EDUAKETONE Negative (Negative); EDUALEUKO Negative (Negative); EDUANITRATE Negative (Negative); EDUAPH 5.5; EDUAPROTEIN Negative (Negative); EDUASPGRAVITY 1.020; EDUAUROBILI 0.2
[2025-05-02 17:07] LABS: EDCOVIDSCREEN Negative (Negative); EDINFLUASCREEN Negative (Negative); EDINFLUBSCREEN Negative (Negative)
== END 2025-05-02 17:19 | disposition home or self-care (01) ==
PROVIDERS: Emergency Provider Registered Nurse; PCP Hospitalist
DX: J90 Pleural effusion, not elsewhere classified (principal); J18.9 Pneumonia, unspecified organism; Z20.822 Contact with and (suspected) exposure to COVID-19; I25.10 Atherosclerotic heart disease of native coronary artery without angina pectoris; E78.00 Pure hypercholesterolemia, unspecified; E03.9 Hypothyroidism, unspecified; Z79.01 Long term (current) use of anticoagulants
CPT/HCPCS: 71046; 81003; 87086; 87426; 87804; 99213; G0463